=== PATIENT | female | born 1970 | race Caucasian/White ===

== ENCOUNTER 2019-07-23 10:12 | Emergency (ER) | payer MEDICAID ==
[~2019-07-23] VITALS: Ht 152.4 cm; Wt 64.0 kg
[2019-07-23] MEDS ORDERED: IBUPROFEN 800 MG TABLET PO ONE (11:00)
[2019-07-23 12:45] VITALS: BP 120/78
== END 2019-07-23 12:40 | disposition home or self-care (01) ==
LOC: EMS 10:14
DX: M72.2 Plantar fascial fibromatosis (principal)